=== PATIENT | female | born 1950 | race Caucasian/White ===

== ENCOUNTER 2023-11-17 19:40 | Emergency (ER) | payer OTHER ==
[2023-11-17] MEDS ORDERED: Amoxicillin/Clavulanate K 875-125 MG Tab PO ONE (19:41)
== END 2023-11-17 20:40 | disposition home or self-care (01) ==
LOC: FB.ED 19:40
DX: S61.451A Open bite of right hand, initial encounter (principal); W54.0XXA Bitten by dog, initial encounter
CPT/HCPCS: 99283; A9270-GY